=== PATIENT | female | born 1950 | race Caucasian/White ===

== ENCOUNTER 2016-09-14 21:08 | Inpatient (IN) | payer MEDICARE ==
--- NOTE | ~2016-09-14 | CR72 ---
[facility] A Service of [facility] RADIOLOGY TEXT RESULTS PATIENT: JIMMY HAWKINS LOCATION: [facility] 338-01 : 52 UNIT #: [id number] AGE: [address]: Yusuf Mcrae MD SEX: F ORDER DR: [id number] [id number] [place], [place] [address] [id number] I MR#: [id number] Acc #: [id number] NAME: JIMMY HAWKINS : 1950 SEX: F STUDY DATE/TIME: 09/17/2016 5:27 UNIT: [facility] ROOM: [facility] STUDY DESCRIPTION: CR Chest Single View Portable Attending Physician: Yusuf Mcrae M.D. Ordering Physician: Yusuf Mcrae M.D. Primary Care Physician: No Primary Care Physician MEDICAL IMAGING REPORT This report is preliminary unless electronic signature is present EXAM AP portable chest, 09/17/2016 at 0527. HISTORY Pneumonia, respiratory failure. Symptoms began 09/04/2016. COMPARISON AP portable chest, 09/16/2016. FINDINGS Emphysematous changes are present. Reticular interstitial type infiltrates in both lungs are again noted and are not thought to be significantly changed. No dense consolidations are identified. No pleural effusion or pneumothorax. Stable heart size. IMPRESSION Reticular and interstitial type infiltrates in both lungs, left greater right, superimposed upon emphysema, without significant change from prior exam. Dictated by... Ceci Gilbert M.D. THIS IS AN ELECTRONICALLY VERIFIED REPORT Ceci Gilbert M.D. at 09/21/2016 8:38 AM LL/yaron TD: 09/17/2016 11:22 JOB #: [id number] MEDICAL IMAGING REPORT [facility] A Service of [facility] RADIOLOGY TEXT RESULTS PATIENT: JIMMY HAWKINS LOCATION: [facility] 338-01 : 52 UNIT #: [id number] AGE: [address]: Yusuf Mcrae MD SEX: F ORDER DR: Page 1 of 1 COPY
--- NOTE | ~2016-09-14 | EKG ---
PATIENT: JIMMY HAWKINS UNIT #: [id number] Ventricular Rate: 124 BPM Atrial Rate: 124 BPM P-R Interval: 114 ms QRS Duration: 74 ms Q-T Interval: 318 ms QTC Calculation(Bezet): 456 ms P [place]: 73 degrees Calculated R [place]: 33 degrees Calculated T [place]: 52 degrees Diagnosis Line: Sinus tachycardia with frequent Premature Diagnosis Line: ventricular complexes Diagnosis Line: Septal infarct , age undetermined Diagnosis Line: Abnormal ECG Diagnosis Line: When compared with ECG of 17-JUN-2010 06:45, Diagnosis Line: Premature ventricular complexes are now Present Diagnosis Line: Septal infarct is now Present Diagnosis Line: ST no longer elevated in Inferior leads Diagnosis Line: ST now depressed in Lateral leads Diagnosis Line: Confirmed by EDGAR TRENT MD ([id number]) on Diagnosis Line: 09/15/2016 11:26:31 AM INTERPRETING MD: MILEY DINERO
--- NOTE | ~2016-09-14 | CR72 ---
[facility] A Service of [facility] RADIOLOGY TEXT RESULTS PATIENT: JIMMY HAWKINS LOCATION: [address] : 52 UNIT #: [id number] AGE: [address]: Yusuf Mcrae MD SEX: F ORDER DR: [id number] [facility] [address] [facility]. [place], [place] [address] [id number] I MR#: [id number] Acc #: [id number] NAME: JIMMY HAWKINS : 1950 SEX: F STUDY DATE/TIME: 09/14/2016 20:17 UNIT: [facility] ROOM: [facility] STUDY DESCRIPTION: CR Chest Single View Portable Attending Physician: Yusuf Mcrae M.D. Ordering Physician: Isabel Hui M.D. Primary Care Physician: No Primary Care Physician MEDICAL IMAGING REPORT This report is preliminary unless electronic signature is present EXAM Portable chest HISTORY Shortness of air, cough, and congestion x1 month. COMPARISON 06/18/2010 FINDINGS Portable view of the chest demonstrates diffuse lung disease with coarse parenchymal markings and cystic areas may represent a combination of emphysema and fibrosis. There is fullness in the left AP window suggesting adenopathy and/or a mass, as well as fullness of the right hilar region which may be related adenopathy. Right infrahilar parenchymal opacity may represent an area of acute airspace disease. No effusions. Heart size within normal limits. Great vessels are unremarkable. No visible pneumothorax. IMPRESSION 1. Evidence of diffuse lung disease may represent a combination of emphysema and fibrosis. 2. Fullness in the AP window suggests adenopathy and/or a mass. This is new from the June 2010 study. Further evaluation and workup may be warranted. 3. Right infrahilar parenchymal opacity could represent an area of acute airspace disease, such as pneumonia. Dictated by... Gerald Ceja M.D. [facility] A Service [facility] RADIOLOGY TEXT RESULTS PATIENT: JIMMY HAWKINS [facility] UNIT #: [id number] AGE: [address]: Yusuf Mcrae MD SEX: F ORDER DR: THIS IS AN ELECTRONICALLY VERIFIED REPORT Gerald Ceja M.D. at 09/15/2016 2:08 PM Alecia TD: 09/15/2016 10:28 JOB #: [id number] MEDICAL IMAGING REPORT COPY
--- NOTE | ~2016-09-14 | CR72 ---
[facility] A Service of [facility] RADIOLOGY TEXT RESULTS PATIENT: JIMMY HAWKINS LOCATION: [facility] 338-01 : 52 UNIT #: [id number] AGE: [address]: Yusuf Mcrae MD SEX: F ORDER DR: [id number] [facility] [address] [place], [place] [address] [id number] I MR#: [id number] Acc #: [id number] NAME: JIMMY HAWKINS : 1950 SEX: F STUDY DATE/TIME: 09/19/2016 5:02 UNIT: [address] ROOM: [facility] STUDY DESCRIPTION: CR Chest Single View Portable Attending Physician: Yusuf Mcrae M.D. Ordering Physician: Yusuf Mcrae M.D. Primary Care Physician: Primary Care Physician No MEDICAL IMAGING REPORT This report is preliminary unless electronic signature is present EXAM AP portable chest 09/19/2016 HISTORY Pneumonia, respiratory failure. Follow up inpatient cardiopulmonary status. TECHNIQUE AP portable chest x-ray. FINDINGS Exam shows no change since yesterday. Advanced pulmonary emphysema with mild patchy infiltrate in the right lung base. Heart size and pulmonary vascularity are normal. No visible pleural effusion. IMPRESSION Stable portable chest radiograph, unchanged since yesterday. Dictated by... Yogesh Nunez M.D. THIS IS AN ELECTRONICALLY VERIFIED REPORT Yogesh Nunez M.D. at 09/20/2016 9:56 PM BRITTANIE/elise TD: 09/20/2016 08:36 JOB #: [id number] MEDICAL IMAGING REPORT COPY
--- NOTE | ~2016-09-14 | CR72 ---
[facility] A Service of [facility] & [facility] RADIOLOGY TEXT RESULTS PATIENT: JIMMY HAWKINS LOCATION: [address] : 52 UNIT #: [id number] AGE: [address]: Yusuf Mcrae MD SEX: F ORDER DR: [id number] [facility] [address] [place], [place] [address] [id number] I MR#: [id number] Acc #: [id number] NAME: JIMMY HAWKINS : 1950 SEX: F STUDY DATE/TIME: 09/15/2016 3:56 UNIT: [facility] ROOM: [facility] STUDY DESCRIPTION: CR Chest Single View Portable Attending Physician: Yusuf Mcrae M.D. Ordering Physician: Yusuf Mcrae M.D. Primary Care Physician: Primary Care Physician No MEDICAL IMAGING REPORT This report is preliminary unless electronic signature is present EXAM AP portable chest DATE 09/15/2016 at 03:56 HISTORY 65-year-old female with respiratory failure, pneumonia, cough, shortness of breath and congestion. Symptoms began 09/14/2016. Additional history of COPD. Asthma. COMPARISON AP portable chest and CT chest PE protocol 09/14/2016 FINDINGS Patchy alveolar disease and interstitial thickening in both lungs appears improved compared to yesterday's study, and background emphysematous changes are present. Faint residual infiltrates remain predominately within the right base. No pleural effusion. No pneumothorax. Heart size is stable. Dictated by... Ceci Gilbert M.D. THIS IS AN ELECTRONICALLY VERIFIED REPORT Ceci Gilbert M.D. at 09/15/2016 10:25 PM H/to TD: 09/15/2016 12:31 JOB #: [id number] MEDICAL IMAGING REPORT COPY
--- NOTE | ~2016-09-14 | HP ---
Unit #: [id number] #: [id number] Patient: JIMMY HAWKINS [id number] [address] [address] [id number] I MR#: [id number] NAME: JIMMY HAWKINS ROOM: [facility] Age: 65 Sex: F Admission Date: 09/14/2016 : 1950 Attending Physician: Yusuf Mcrae M.D. Primary Care Physician: No Primary Care Physician HISTORY AND PHYSICAL CHIEF COMPLAINT Cough and shortness of breath. HISTORY OF PRESENT ILLNESS The patient, basically, is a 65-year-old female with past medical history of COPD. Came in with complaint of cough, shortness of breath, increasing sputum production. Was found to be hypoxic, hypercapnic. Transferred to ICU. Currently on BiPAP. Complaining of shortness of breath. REVIEW OF SYSTEMS Unobtainable. Patient on BiPAP. PAST MEDICAL HISTORY 1. COPD. 2. Depression. SOCIAL HISTORY One-pack smoker per day. Denies alcohol or drug abuse. FAMILY HISTORY None as per records. MEDICATIONS As per MAR. Has been reviewed. PHYSICAL EXAMINATION VITAL SIGNS: Temperature is 98, pulse 70, respirations 12, blood pressure 110/70. NEUROLOGIC: Awake, alert and oriented. No neuro deficits. HEENT: PERRLA. EOMI. NECK: Supple. No JVD. CHEST: Bilateral air entry. Bilaterally mild rhonchi. GI: Nontender. Soft. Bowel sounds are positive. EXTREMITIES: No edema. SKIN: No rashes. No ulcers. LYMPHATIC: No lymphadenopathy. DIAGNOSTIC STUDIES Labs and imaging have been reviewed. ASSESSMENT 1. Acute hypoxic, hypercapnic respiratory failure. 2. Acute exacerbation of COPD. 3. Acute bronchitis, rule out pneumonia. Unit #: [id number] #: [id number] Patient: JIMMY HAWKINS PLAN Plan is to admit the patient. Continue IV steroid, IV antibiotic, bronchodilator. GI and DVT prophylaxis. Wean off BiPAP. The patient may require bronchoscopy at some point once the pulmonary status improves. We will continue to follow. Please see orders for detailed plan. NOTE: Total critical care time is 65 minutes in direct critical care of this patient. Dictated by Ana Luisa Oliva/yisel TD: 09/15/2016 10:24 JOB #: [id number] HISTORY AND PHYSICAL X Yusuf Mcrae MD HISTORY AND PHYSICAL
--- NOTE | ~2016-09-14 | CT16 ---
[facility] A Service of [facility] & [facility] RADIOLOGY TEXT RESULTS PATIENT: JIMMY HAWKINS LOCATION: [address]19 : 52 UNIT #: [id number] AGE: [address]: Yusuf Mcrae MD SEX: F ORDER DR: [id number] [facility] [address] [place], [place] [address] [id number] I MR#: [id number] Acc #: [id number] NAME: JIMMY HAWKINS : 1950 SEX: F STUDY DATE/TIME: 09/14/2016 22:22 UNIT: [facility] ROOM: [facility] STUDY DESCRIPTION: CT Angio Chest for PE Attending Physician: Yusuf Mcrae M.D. Ordering Physician: Froylan Dodge M.D. Primary Care Physician: No Primary Care Physician MEDICAL IMAGING REPORT This report is preliminary unless electronic signature is present EXAM CT angiography of the chest with contrast pulmonary embolism protocol DATE 09/14/2016 at 2222 HISTORY 65-year-old female with elevated D-dimer 886. Congestion. Productive cough. Shortness of breath. Labored mild breathing distress for 1 month. COPD. COMPARISON AP portable chest 09/14/2016 at [address] No prior CT chest for comparison at this institution. PROCEDURE 2 mm axial images through the chest after IV contrast administration. 3D coronal MIP reformatted images were obtained. This CT exam was performed with one or more of the following radiation dose reduction techniques: automatic exposure control, adjustment of mA and/or kV according to patient size, and iterative reconstruction. FINDINGS No pulmonary embolism. No thoracic aortic aneurysm or aortic dissection. Severe emphysema. Peribronchiolar interstitial and alveolar opacities are seen in a patchy distribution throughout both lungs, with more dense consolidative change within the right lower lobe, thought to represent changes of multifocal pneumonia. Bronchial wall thickening with bronchiectasis is demonstrated within the right lower lobe. Mediastinal and hilar adenopathy is present. This includes a right hilar node measuring approximately 1.7 x 3.2 cm, left hilar node measuring 1.3 x 1.4 cm, precarinal node measuring 1.0 x 1.2 cm, prevascular node measuring 1.0 x 1.4 cm. [facility]. [facility] A Service of [facility] & [facility] RADIOLOGY TEXT RESULTS PATIENT: JIMMY HAWKINS LOCATION: [facility]19 : 52 UNIT #: [id number] AGE: [address]: Yusuf Mcrae MD SEX: F ORDER DR: No pericardial effusion or pleural effusion is seen. Imaged thyroid gland is unremarkable. There is a subtle surface nodular contour to the liver which is nonspecific but could represent changes of cirrhosis in the appropriate clinical context. There is moderate left renal atrophy with multifocal left renal cortical scarring. Mild bilateral adrenal gland thickening without discrete nodularity, likely on the basis of hyperplasia. No acute no acute osseous abnormalities are identified. Chronic-appearing compression deformity of the T6 vertebral body incidentally noted. Several of the images are degraded by patient respiratory motion. IMPRESSION 1. No pulmonary embolism. No thoracic aortic aneurysm or aortic dissection. 2. Severe emphysema. 3. Multifocal patchy interstitial and alveolar opacities seen predominantly in a peribronchiolar distribution, with more dense consolidative-type change in the posterior right lower lobe. Findings are thought to represent changes of multifocal pneumonia. 4. Enlarged mediastinal and bilateral hilar lymph nodes as described above. These may be benign and reactive. Malignant etiology not completely excluded. Consider short-term CT chest follow up after a trial of therapy. 5. Subtle nodular contour of the liver. Correlate clinically for cirrhosis. 6. Moderate left renal atrophy with multifocal cortical scarring. 7. Chronic T6 compression fracture. Dictated by... Ceci Gilbert M.D. THIS IS AN ELECTRONICALLY VERIFIED REPORT Ceci Gilbert M.D. at 09/15/2016 10:26 PM NIKOLAI/leonardo TD: 09/15/2016 11:28 JOB #: [id number] MEDICAL IMAGING REPORT COPY
--- NOTE | ~2016-09-14 | CR72 ---
[facility] A Service of [facility] RADIOLOGY TEXT RESULTS PATIENT: JIMMY HAWKINS LOCATION: [address] : 52 UNIT #: [id number] AGE: [address]: Yusuf Mcrae MD SEX: F ORDER DR: [id number] [facility] [address] [place], [place] [address] [id number] I MR#: [id number] Acc #: [id number] NAME: JIMMY HAWKINS : 1950 SEX: F STUDY DATE/TIME: 09/16/2016 5:43 UNIT: [facility] ROOM: [facility] STUDY DESCRIPTION: CR Chest Single View Portable Attending Physician: Yusuf Mcrae M.D. Ordering Physician: Yusuf Mcrae M.D. Primary Care Physician: No Primary Care Physician MEDICAL IMAGING REPORT This report is preliminary unless electronic signature is present EXAM AP portable chest 09/16/2016 at 0543 HISTORY Respiratory failure, pneumonia. Symptoms began 09/14/[address] chest 09/14/2016, AP portable chest 09/15/2016. FINDINGS Emphysematous changes are present. Interstitial reticular infiltrates within the lungs, slightly greatest in the left mid lung and within the medial bibasilar distributions, without significant change. Heart size is stable. No pneumothorax. Background emphysematous changes. IMPRESSION Reticular infiltrates in the lungs, on background emphysema, without significant change from 1 day prior. Dictated by... Ceci Gilbert M.D. THIS IS AN ELECTRONICALLY VERIFIED REPORT Ceci Gilbert M.D. at 09/17/2016 12:12 AM LL/adeel TD: 09/16/2016 12:39 JOB #: [id number] MEDICAL IMAGING REPORT COPY
[2016-09-14 20:03] LABS: BASOPHIL% 0.3 % (0-2.5); EOSINOPHIL% 0.1 % (0.0-7.0); HEMATOCRIT 47.7 % (35.0-45.0); HEMOGLOBIN 15.5 gm/dL (12.0-16.0); LYMPHOCYTE# 0.6 X10e3 (1.0-3.5); LYMPHOCYTE% 4.3 % (17.0-45.0); MEAN CELL VOLUME 88.6 FL (83-96); MEAN CORPUSCULAR HEMOGLOBIN 28.8 PG (28-34); MEAN CORPUSCULAR HGB CONC 32.5 g/dL (30-36); MEAN PLATELET VOLUME 8.6 FL (6.5-11.5); MONOCYTE# 1.2 X10e3 (0-1.0); MONOCYTE% 7.9 % (3.0-12.0); NEUTROPHIL# 12.9 X10e3 (1.5-7.1); NEUTROPHIL% 87.4 % (40-75); PLATELET COUNT 247 X10e3 (140-420); RED BLOOD COUNT 5.39 X10e (3.90-5.30); RED CELL DISTRIBUTION WIDTH 15.3 % (11.0-15.5); WHITE BLOOD COUNT 14.8 X10e3 (4.0-10.5)
[2016-09-14 20:04] LABS: DIFF IND NO
[2016-09-14 20:09] LABS: ARTERIAL BLD GAS O2 SATURATION 85.7 % (90.0-100.0); ARTERIAL BLOOD GAS MET HB 0.7 %sat (0.0-2.0); ARTERIAL BLOOD GAS pH 7.336 (7.350-7.450)
[2016-09-14 20:10] LABS: ARTERIAL BLOOD GAS PCO2 63.6 mmHg (35.0-45.0); ARTERIAL BLOOD GAS PO2 56.3 mmHg (80.0-100)
[2016-09-14 20:11] LABS: ARTERIAL BLOOD GAS ALLEN TEST NORMAL; ARTERIAL BLOOD GAS ART SITE LEFT RADIAL; ARTERIAL BLOOD GAS DELIVERY NASAL CANNULA; ARTERIAL DRAW? YES
[2016-09-14 20:18] LABS: POC - TROPONIN <0.05 ng/mL (<=0.05)
[2016-09-14 20:37] LABS: ALBUMIN SERUM 3.4 g/dL (3.5-5.0); ALKALINE PHOSPHATASE 126 U/L (32-92); ALT (SGPT) 12 U/L (10-40); AST (SGOT) 16 U/L (10-42); BILIRUBIN, DIRECT 0.2 mg/dL (0.0-0.2); BILIRUBIN,INDIRECT 0.2 mg/dL (0.0-0.9); BILIRUBIN,TOTAL 0.4 mg/dL (0.2-2.0); BLOOD UREA NITROGEN 9 mg/dL (9-23); CARBON DIOXIDE 31 mmol/L (22-31); CHLORIDE 88 mmol/L (100-111); CREATININE SERUM 0.4 mg/dL (0.6-1.4); GLOM FILT RATE Estimated ABOVE60 mL/min (>60); GLUCOSE FASTING 112 mg/dL (70-110); POTASSIUM 4.5 mmol/L (3.5-5.1); PROTEIN TOTAL SERUM 7.6 g/dL (6.0-8.3); SODIUM 130 mmol/L (135-145)
[2016-09-14 20:40] LABS: INFLUENZA A NEG (NEG); INFLUENZA B NEG (NEG)
[~2016-09-14 21:08] MED LIST: ALBUTEROL17 G1 IH; ALPRAZOLAM PO; COREG3.125 MG PO; PREDNISONE PO; PROAIR HFA8.5 GM INH; SYMBICORT INH; ULTRAM PO
[2016-09-14 21:14] LABS: ARTERIAL BLOOD GAS CARBOXY HB 1.6 %sat (0.0-9.0); ARTERIAL BLOOD GAS HCO3 34.1 mmol/L; ARTERIAL BLOOD GAS MET HB 0.7 %sat (0.0-2.0); ARTERIAL BLOOD GAS pH 7.314 (7.350-7.450)
[2016-09-14 21:15] LABS: ARTERIAL BLOOD GAS ART SITE RIGHT BRACHIAL; ARTERIAL DRAW? YES
[2016-09-14] MEDS ORDERED: IPRATROPIUM BR2.5 ML INH (21:35)
[2016-09-14] MEDS ORDERED: PULMICORT0.5 MG/21 INH (21:35)
[2016-09-14] MEDS ORDERED: BROVANA15 MCG/2 M INH (21:35)
[2016-09-14] MEDS ORDERED: ALBUTEROL 0.5ML INH (21:36)
[2016-09-14] MEDS ORDERED: CITALOPRAM HBR40 MG PO (21:36)
[2016-09-14] MEDS ORDERED: SINGULAIR PO (21:36)
[2016-09-15 03:04] LABS: BASOPHIL% 0.3 % (0-2.5); HEMATOCRIT 42.4 % (35.0-45.0); HEMOGLOBIN 13.8 gm/dL (12.0-16.0); LYMPHOCYTE# 0.1 X10e3 (1.0-3.5); LYMPHOCYTE% 1.3 % (17.0-45.0); MEAN CELL VOLUME 88.6 FL (83-96); MEAN CORPUSCULAR HEMOGLOBIN 28.8 PG (28-34); MEAN CORPUSCULAR HGB CONC 32.5 g/dL (30-36); MEAN PLATELET VOLUME 8.3 FL (6.5-11.5); MONOCYTE# 0.1 X10e3 (0-1.0); MONOCYTE% 1.3 % (3.0-12.0); NEUTROPHIL# 10.4 X10e3 (1.5-7.1); NEUTROPHIL% 97.1 % (40-75); PLATELET COUNT 200 X10e3 (140-420); RED BLOOD COUNT 4.78 X10e (3.90-5.30); RED CELL DISTRIBUTION WIDTH 15.4 % (11.0-15.5); WHITE BLOOD COUNT 10.8 X10e3 (4.0-10.5)
[2016-09-15 03:06] LABS: DIFF IND NO
[2016-09-15 03:29] LABS: ALBUMIN SERUM 2.9 g/dL (3.5-5.0); ALKALINE PHOSPHATASE 105 U/L (32-92); ALT (SGPT) 11 U/L (10-40); AST (SGOT) 11 U/L (10-42); BILIRUBIN,TOTAL 0.7 mg/dL (0.2-2.0); BLOOD UREA NITROGEN 9 mg/dL (9-23); CALCIUM SERUM 8.1 mg/dL (8.4-10.2); CARBON DIOXIDE 31 mmol/L (22-31); CHLORIDE 92 mmol/L (100-111); CREATININE SERUM 0.5 mg/dL (0.6-1.4); GLOM FILT RATE Estimated ABOVE60 mL/min (>60); GLUCOSE FASTING 133 mg/dL (70-110); POTASSIUM 5.1 mmol/L (3.5-5.1); PROTEIN TOTAL SERUM 6.7 g/dL (6.0-8.3); SODIUM 130 mmol/L (135-145)
[2016-09-15 06:25] LABS: ARTERIAL BLD GAS O2 SATURATION 98.4 % (90.0-100.0); ARTERIAL BLOOD GAS CARBOXY HB 0.5 %sat (0.0-9.0); ARTERIAL BLOOD GAS HCO3 32.3 mmol/L; ARTERIAL BLOOD GAS MET HB 0.7 %sat (0.0-2.0); ARTERIAL BLOOD GAS pH 7.255 (7.350-7.450)
[2016-09-15 06:27] LABS: ARTERIAL BLOOD GAS ART SITE LEFT RADIAL; ARTERIAL BLOOD GAS DELIVERY BIPAP 14/6; ARTERIAL BLOOD GAS PCO2 72.9 mmHg (35.0-45.0); ARTERIAL DRAW? YES
[2016-09-15 08:58] LABS: ARTERIAL BLD GAS O2 SATURATION 96.3 % (90.0-100.0); ARTERIAL BLOOD GAS CARBOXY HB 0.5 %sat (0.0-9.0); ARTERIAL BLOOD GAS HCO3 32.7 mmol/L; ARTERIAL BLOOD GAS MET HB 0.6 %sat (0.0-2.0); ARTERIAL BLOOD GAS pH 7.298 (7.350-7.450)
[2016-09-15 08:59] LABS: ARTERIAL BLOOD GAS ALLEN TEST NORMAL; ARTERIAL BLOOD GAS ART SITE RIGHT RADIAL; ARTERIAL BLOOD GAS DELIVERY BIPAP 16/6; ARTERIAL BLOOD GAS PCO2 66.8 mmHg (35.0-45.0); ARTERIAL DRAW? YES
[2016-09-16 05:08] LABS: BASOPHIL% 0.2 % (0-2.5); HEMATOCRIT 43.1 % (35.0-45.0); HEMOGLOBIN 13.6 gm/dL (12.0-16.0); LYMPHOCYTE# 0.3 X10e3 (1.0-3.5); MEAN CELL VOLUME 90.1 FL (83-96); MEAN CORPUSCULAR HEMOGLOBIN 28.3 PG (28-34); MEAN CORPUSCULAR HGB CONC 31.4 g/dL (30-36); MEAN PLATELET VOLUME 8.7 FL (6.5-11.5); MONOCYTE# 0.2 X10e3 (0-1.0); MONOCYTE% 3.1 % (3.0-12.0); NEUTROPHIL# 6.3 X10e3 (1.5-7.1); NEUTROPHIL% 91.7 % (40-75); PLATELET COUNT 218 X10e3 (140-420); RED BLOOD COUNT 4.79 X10e (3.90-5.30); RED CELL DISTRIBUTION WIDTH 15.1 % (11.0-15.5); WHITE BLOOD COUNT 6.9 X10e3 (4.0-10.5)
[2016-09-16 05:26] LABS: DIFF IND NO
[2016-09-16 06:06] LABS: ARTERIAL BLOOD GAS pH 7.309 (7.350-7.450)
[2016-09-16 06:08] LABS: ARTERIAL BLD GAS O2 SATURATION 97.8 % (90.0-100.0); ARTERIAL BLOOD GAS ALLEN TEST NORMAL; ARTERIAL BLOOD GAS ART SITE LEFT RADIAL; ARTERIAL BLOOD GAS CARBOXY HB 0.2 %sat (0.0-9.0); ARTERIAL BLOOD GAS HCO3 39.2 mmol/L; ARTERIAL BLOOD GAS MET HB 0.6 %sat (0.0-2.0); ARTERIAL DRAW? YES
[2016-09-16 06:09] LABS: ARTERIAL BLOOD GAS DELIVERY BIPAP 16/6 R16
[2016-09-16 06:18] LABS: ALBUMIN SERUM 2.7 g/dL (3.5-5.0); ALKALINE PHOSPHATASE 89 U/L (32-92); ALT (SGPT) 12 U/L (10-40); AST (SGOT) 13 U/L (10-42); BILIRUBIN,TOTAL 0.2 mg/dL (0.2-2.0); BLOOD UREA NITROGEN 20 mg/dL (9-23); CARBON DIOXIDE 36 mmol/L (22-31); CHLORIDE 94 mmol/L (100-111); CREATININE SERUM 0.5 mg/dL (0.6-1.4); GLOM FILT RATE Estimated ABOVE60 mL/min (>60); GLUCOSE FASTING 142 mg/dL (70-110); POTASSIUM 4.9 mmol/L (3.5-5.1); PROTEIN TOTAL SERUM 6.1 g/dL (6.0-8.3); SODIUM 138 mmol/L (135-145)
[2016-09-17 04:23] LABS: BASOPHIL% 0.1 % (0-2.5); HEMATOCRIT 43.1 % (35.0-45.0); HEMOGLOBIN 13.5 gm/dL (12.0-16.0); LYMPHOCYTE# 0.4 X10e3 (1.0-3.5); LYMPHOCYTE% 5.1 % (17.0-45.0); MEAN CELL VOLUME 90.4 FL (83-96); MEAN CORPUSCULAR HEMOGLOBIN 28.4 PG (28-34); MEAN CORPUSCULAR HGB CONC 31.4 g/dL (30-36); MEAN PLATELET VOLUME 8.6 FL (6.5-11.5); MONOCYTE# 0.4 X10e3 (0-1.0); MONOCYTE% 4.3 % (3.0-12.0); NEUTROPHIL# 7.5 X10e3 (1.5-7.1); NEUTROPHIL% 90.5 % (40-75); PLATELET COUNT 218 X10e3 (140-420); RED BLOOD COUNT 4.76 X10e (3.90-5.30); RED CELL DISTRIBUTION WIDTH 15.6 % (11.0-15.5); WHITE BLOOD COUNT 8.3 X10e3 (4.0-10.5)
[2016-09-17 04:24] LABS: DIFF IND NO
[2016-09-17 04:46] LABS: ALKALINE PHOSPHATASE 83 U/L (32-92); ALT (SGPT) 14 U/L (10-40); AST (SGOT) 15 U/L (10-42); BILIRUBIN,TOTAL 0.2 mg/dL (0.2-2.0); BLOOD UREA NITROGEN 20 mg/dL (9-23); CALCIUM SERUM 8.1 mg/dL (8.4-10.2); CARBON DIOXIDE 34 mmol/L (22-31); CHLORIDE 96 mmol/L (100-111); CREATININE SERUM 0.5 mg/dL (0.6-1.4); GLOM FILT RATE Estimated ABOVE60 mL/min (>60); GLUCOSE FASTING 159 mg/dL (70-110); POTASSIUM 4.7 mmol/L (3.5-5.1); PROTEIN TOTAL SERUM 6.9 g/dL (6.0-8.3); SODIUM 131 mmol/L (135-145)
[2016-09-17 05:44] LABS: ARTERIAL BLD GAS O2 SATURATION 97.8 % (90.0-100.0); ARTERIAL BLOOD GAS CARBOXY HB 0.1 %sat (0.0-9.0); ARTERIAL BLOOD GAS HCO3 38.6 mmol/L; ARTERIAL BLOOD GAS MET HB 0.6 %sat (0.0-2.0); ARTERIAL BLOOD GAS pH 7.341 (7.350-7.450)
[2016-09-17 06:00] LABS: ARTERIAL BLOOD GAS PCO2 71.4 mmHg (35.0-45.0)
[2016-09-17 06:01] LABS: ARTERIAL BLOOD GAS ALLEN TEST NORMAL; ARTERIAL BLOOD GAS ART SITE LEFT RADIAL; ARTERIAL DRAW? YES
[2016-09-17 06:02] LABS: ARTERIAL BLOOD GAS DELIVERY BIPAP 18/6 R20
[2016-09-17 06:57] LABS: LEGIONELLA AG URINE NEG (NEG)
[2016-09-17 13:22] LABS: ARTERIAL BLD GAS O2 SATURATION 86.8 % (90.0-100.0); ARTERIAL BLOOD GAS ALLEN TEST NORMAL; ARTERIAL BLOOD GAS ART SITE RIGHT RADIAL; ARTERIAL BLOOD GAS CARBOXY HB 0.6 %sat (0.0-9.0); ARTERIAL BLOOD GAS DELIVERY NASAL CANNULA; ARTERIAL BLOOD GAS HCO3 34.1 mmol/L; ARTERIAL BLOOD GAS MET HB 0.9 %sat (0.0-2.0); ARTERIAL BLOOD GAS PCO2 64.3 mmHg (35.0-45.0); ARTERIAL BLOOD GAS PO2 56.1 mmHg (80.0-100); ARTERIAL BLOOD GAS pH 7.332 (7.350-7.450); ARTERIAL DRAW? YES
[2016-09-17 14:50] LABS: ARTERIAL BLD GAS O2 SATURATION 96.6 % (90.0-100.0); ARTERIAL BLOOD GAS ALLEN TEST NORMAL; ARTERIAL BLOOD GAS ART SITE RIGHT RADIAL; ARTERIAL BLOOD GAS CARBOXY HB 0.4 %sat (0.0-9.0); ARTERIAL BLOOD GAS DELIVERY BIPAP 18/6; ARTERIAL BLOOD GAS HCO3 37.2 mmol/L; ARTERIAL BLOOD GAS MET HB 1.1 %sat (0.0-2.0); ARTERIAL BLOOD GAS PCO2 66.1 mmHg (35.0-45.0); ARTERIAL BLOOD GAS pH 7.359 (7.350-7.450); ARTERIAL DRAW? YES
[2016-09-18 03:57] LABS: ARTERIAL BLD GAS O2 SATURATION 96.5 % (90.0-100.0); ARTERIAL BLOOD GAS CARBOXY HB 0.1 %sat (0.0-9.0); ARTERIAL BLOOD GAS HCO3 38.6 mmol/L; ARTERIAL BLOOD GAS MET HB 0.5 %sat (0.0-2.0); ARTERIAL BLOOD GAS PO2 83.8 mmHg (80.0-100); ARTERIAL BLOOD GAS pH 7.402 (7.350-7.450)
[2016-09-18 04:03] LABS: ARTERIAL BLOOD GAS ALLEN TEST NORMAL; ARTERIAL BLOOD GAS ART SITE RIGHT RADIAL; ARTERIAL BLOOD GAS DELIVERY BIPAP 18/6; ARTERIAL BLOOD GAS PCO2 62.1 mmHg (35.0-45.0); ARTERIAL DRAW? YES
[2016-09-19 04:02] LABS: ARTERIAL BLD GAS O2 SATURATION 98.5 % (90.0-100.0); ARTERIAL BLOOD GAS CARBOXY HB 0.1 %sat (0.0-9.0); ARTERIAL BLOOD GAS HCO3 38.2 mmol/L; ARTERIAL BLOOD GAS MET HB 0.6 %sat (0.0-2.0); ARTERIAL BLOOD GAS pH 7.355 (7.350-7.450)
[2016-09-19 04:09] LABS: ARTERIAL BLOOD GAS PCO2 68.4 mmHg (35.0-45.0); ARTERIAL DRAW? YES
[2016-09-19 04:10] LABS: ARTERIAL BLOOD GAS ALLEN TEST NORMAL; ARTERIAL BLOOD GAS ART SITE RIGHT RADIAL; ARTERIAL BLOOD GAS DELIVERY NASAL CANNULA
[2016-09-19 09:30] LABS: BASOPHIL% 0.7 % (0-2.5); HEMATOCRIT 42.9 % (35.0-45.0); HEMOGLOBIN 13.8 gm/dL (12.0-16.0); LYMPHOCYTE# 0.2 X10e3 (1.0-3.5); LYMPHOCYTE% 4.4 % (17.0-45.0); MEAN CORPUSCULAR HEMOGLOBIN 28.7 PG (28-34); MEAN CORPUSCULAR HGB CONC 32.2 g/dL (30-36); MEAN PLATELET VOLUME 8.3 FL (6.5-11.5); MONOCYTE# 0.1 X10e3 (0-1.0); MONOCYTE% 2.2 % (3.0-12.0); NEUTROPHIL# 5.1 X10e3 (1.5-7.1); NEUTROPHIL% 92.7 % (40-75); PLATELET COUNT 176 X10e3 (140-420); RED BLOOD COUNT 4.82 X10e (3.90-5.30); RED CELL DISTRIBUTION WIDTH 15.1 % (11.0-15.5); WHITE BLOOD COUNT 5.5 X10e3 (4.0-10.5)
[2016-09-19 09:33] LABS: DIFF IND NO
[2016-09-19 09:56] LABS: ALBUMIN SERUM 2.8 g/dL (3.5-5.0); ALKALINE PHOSPHATASE 73 U/L (32-92); ALT (SGPT) 45 U/L (10-40); AST (SGOT) 27 U/L (10-42); BILIRUBIN,TOTAL 0.4 mg/dL (0.2-2.0); BLOOD UREA NITROGEN 16 mg/dL (9-23); CALCIUM SERUM 8.4 mg/dL (8.4-10.2); CARBON DIOXIDE 36 mmol/L (22-31); CHLORIDE 97 mmol/L (100-111); CREATININE SERUM 0.5 mg/dL (0.6-1.4); GLOM FILT RATE Estimated ABOVE60 mL/min (>60); GLUCOSE FASTING 131 mg/dL (70-110); MAGNESIUM 1.9 mg/dL (1.6-3.0); POTASSIUM 4.4 mmol/L (3.5-5.1); PROTEIN TOTAL SERUM 6.2 g/dL (6.0-8.3); SODIUM 139 mmol/L (135-145)
[2016-09-20 08:31] LABS: HEMATOCRIT 43.6 % (35.0-45.0); HEMOGLOBIN 13.8 gm/dL (12.0-16.0); MEAN CELL VOLUME 90.1 FL (83-96); MEAN CORPUSCULAR HEMOGLOBIN 28.5 PG (28-34); MEAN CORPUSCULAR HGB CONC 31.7 g/dL (30-36); MEAN PLATELET VOLUME 8.5 FL (6.5-11.5); RED BLOOD COUNT 4.84 X10e (3.90-5.30); RED CELL DISTRIBUTION WIDTH 14.9 % (11.0-15.5); WHITE BLOOD COUNT 6.8 X10e3 (4.0-10.5)
[2016-09-20 09:04] LABS: ALBUMIN SERUM 2.7 g/dL (3.5-5.0); ALKALINE PHOSPHATASE 69 U/L (32-92); ALT (SGPT) 36 U/L (10-40); AST (SGOT) 15 U/L (10-42); BILIRUBIN,TOTAL 0.3 mg/dL (0.2-2.0); BLOOD UREA NITROGEN 19 mg/dL (9-23); CALCIUM SERUM 8.1 mg/dL (8.4-10.2); CARBON DIOXIDE 36 mmol/L (22-31); CHLORIDE 95 mmol/L (100-111); CREATININE SERUM 0.4 mg/dL (0.6-1.4); GLOM FILT RATE Estimated ABOVE60 mL/min (>60); GLUCOSE FASTING 131 mg/dL (70-110); MAGNESIUM 2.2 mg/dL (1.6-3.0); POTASSIUM 4.5 mmol/L (3.5-5.1); PROTEIN TOTAL SERUM 5.6 g/dL (6.0-8.3); SODIUM 139 mmol/L (135-145)
[2016-09-21 05:55] LABS: MAGNESIUM 2.2 mg/dL (1.6-3.0); POTASSIUM 4.6 mmol/L (3.5-5.1)
[2016-09-22] MEDS ORDERED: PREDNISONE (13:42)
== END 2016-09-22 16:52 | disposition home health service (06) | DRG 189 ==
LOC: CED 21:08 → CEDOF 23:25 → CICCU3 09-15 01:04 → C3A PCU 09-18 21:30
PROVIDERS: Emergency Medicine; Internal Medicine; Nurse Practitioner
PROC: 3E0234Z Introduction of Serum, Toxoid and Vaccine into Muscle, Percutaneous Approach (ICD-10-PCS; principal; 2016-09-22)
DX: J96.02 Acute respiratory failure with hypercapnia (principal); J44.0 Chronic obstructive pulmonary disease with (acute) lower respiratory infection; J44.1 Chronic obstructive pulmonary disease with (acute) exacerbation; J96.01 Acute respiratory failure with hypoxia; J20.9 Acute bronchitis, unspecified; G47.33 Obstructive sleep apnea (adult) (pediatric); Z23 Encounter for immunization
CPT/HCPCS: 36415; 36600; 71010; 71275; 80048; 80053; 80076; 82553; 82803; 83605; 83735; 83880; 84132; 84484; 85025; 85027; 85379; 87040; 87070; 87205; 87449; 87804; 87899; 90732; 92526; 92610; 93005; 94640; 94644; 94660; 94760; 94761; 96365; 96368; 96375; 97116; 97162; 99285; C9113; G0009; G8978-GP; G8979-GP; G8996-GN; G8997-GN; G8998-GN; J0456; J0696; J1650; J1940; J1956; J2920; J2930; J3475; Q9967